=== PATIENT | male | born 1975 | race Caucasian/White ===

== ENCOUNTER 2020-01-14 10:53 | Emergency (ER) | payer OTHER, SELFPAY ==
--- NOTE | ~2020-01-14 | CT_ITS ---
EXAMINATION: CT abdomen pelvis w con INDICATION: Jaundice, abdominal distention TECHNIQUE: Computed tomographic images of the abdomen and pelvis were obtained after the administrati on of 100 cc of Omnipaque 350 intravenous contrast. The dose-length product (DLP) was 1466.08 mGy-cm. Automated exposure control and iterative reconstruction technique were employed. COMPARISON: 12/28/2018 FINDINGS: The lung bases are clear. The heart size is normal. There is a large volume of ascites. The liver is diffusely low in attenuation when compared with the spleen. The spleen, pancreas, gallbladd er, and right adrenal gland are normal. A stable 2 cm left adrenal nodule is most consistent with an adenoma. The kidneys are unremarkable. No pathologically enlarged abdominal or pelvic lymph nodes are identified. There is no free intraperitoneal gas or evidence of bowel obstruction. IMPRESSION: 1. Large volume of ascites. 2. Diffuse hepatic steatosis. Reviewed, dictated and finalized at location A.
--- NOTE | ~2020-01-14 | XR_ITS ---
EXAMINATION: XR chest 2V DATE: 01/14/2020 12:07 INDICATION: Shortness of breath TECHNIQUE: AP and lateral views of the chest are obtained. COMPARISON: 01/19/2018 FINDINGS: The lung volumes are low. The lungs are free of acute opacities. There is no pleural effusi on or pneumothorax. The cardiomediastinal silhouette is normal. There is mild thoracic spondylosis. IMPRESSION: 1. No acute cardiopulmonary abnormality. Reviewed, dictated and finalized at location A.
[2020-01-14 11:00] VITALS: BP 150/88; PULSE 119; RESP 20; TEMP 36.8; O2SAT 100
--- NOTE | 2020-01-14 11:39 | ECG_ITS ---
Measurements Intervals [place] Rate: 105 P: 44 [place]: 159 QRS: -5 QRSD: 101 T: -3 QT: 320 QTc: 424 Interpretive Statements SINUS TACHYCARDIA BORDERLINE T WAVE ABNORMALITY- ANT/INF LEADS ABNORMAL ECG Electronically Signed On 01-14-2020 12:36:04 CDT by Mason Wilson D.O.
--- NOTE | 2020-01-14 11:39 | ED.ABDPAIN ---
HPI - Abdominal Pain General Chief Complaint: Abdominal Pain <LIS Otto Last Filed: 01/14/20 14:18> Stated Complaint: ABD PAIN, JAUNDICED <LIS Otto Last Filed: 01/14/20 14:18> Time Seen by Provider: 01/14/20 11:24 <LIS Otto Last Filed: 01/14/20 14:18> Source: patient <LIS Otto Last Filed: 01/14/20 14:18> Mode of arrival: ambulatory <LIS Otto Last Filed: 01/14/20 14:18> Limitations: no limitations <LIS Otto Last Filed: 01/14/20 14:18> History of Present Illness HPI narrative: This is a 44 year old male that presents to the ER for jaundice x 2 weeks. Reports he noted yellow coloring of his skin and eyes. Reports he then noted swelling of his abdomen and legs that have continued to worsen over the last week. Also reports generalized weakness. Denies fever, chest pain, vomiting, diarrhea, dysuria or hematuria. <LIS Otto Last Filed: 01/14/20 14:18> Related Data Home Medications: Home Medications Medication Instructions Recorded Confirmed pantoprazole PO 01/14/20 <LIS Otto Last Filed: 01/14/20 14:18> Allergies/Adverse Reactions: Allergies Allergy/AdvReac Type Severity Reaction Status Date / Time No Known Allergies Allergy Unverified 01/14/20 11:07 <LIS Otto Last Filed: 01/14/20 14:18> Review of Systems Review of Systems: Narrative: CONSTITUTIONAL: Denies fever CARDIOVASCULAR: Reports edema. Denies chest pain RESPIRATORY: Reports dyspnea. GASTROINTESTINAL: Reports abdominal pain/distention. Denies nausea, vomiting, or diarrhea. GENITOURINARY: Denies dysuria or hematuria. NEUROLOGIC: Reports weakness. <LIS Otto Last Filed: 01/14/20 14:18> All systems reviewed & are unremarkable except as noted in HPI and below <Ashanti Onofre PA-C - Last Filed: 01/14/20 14:18> [facility] Past Medical History Medical History: Medical History (Updated 01/14/20 @ 14:35 by Elis Goldman MD) History of hypertension <Ashanti Onofre PA-C - Last Filed: 01/14/20 14:18> Family History Family History: Family History (Updated 04/10/18 @ 13:20 by DOCTOR UNKNOWN) Father Hypertension Family history of malignant neoplasm of brain Grandparent Family history of malignant neoplasm, Onset Age: 77 Family history of cardiovascular disease Mother Patient's mother is in good health Other Family history of coronary artery disease <Ashanti Onofre PA-C - Last Filed: 01/14/20 14:18> Social History Social History: Social History Smoking status: Never smoker Alcohol intake: current Gender identity (if verbalized by the patient): Male <Ashanti Onofre PA-C - Last Filed: 01/14/20 14:18> Exam Narrative: Exam Narrative: GENERAL: Well-appearing, well-nourished, and in no acute distress. HEAD: Normocephalic, atraumatic. EYES: PERRLA and EOMI. [place]a ikterus CHEST: Clear to auscultation. No respiratory distress. No wheezes rales or rhonchi HEART: Regular rate and rhythm. No murmur heard. Normal peripheral pulses. ABDOMEN: Distended, nontender, normal active bowel sounds. EXTREMITIES: Normal range of motion. No edema. SKIN: Warm, dry, no rash. Patient is jaundice NEURO: No focal deficits. Alert and oriented x3. PSYCH: Normal mood and affect <Ashanti Onofre PA-C - Last Filed: 01/14/20 14:18> Course [employer] HEL[employer]/PA Physician Supervision Attestation for Ashanti Onofre at 1431. I had seen the patient early in his work-up, and went back into be sure all questions were answered by him and his . The is concerned that this was such a fast onset, and he is worried about not getting right back to work. I explained they would have to see the liver specialist, and because of the severe cirrhosis might need to talk to the transplant team. I told them both that he would have to be free from alcohol for 6 months to
[2020-01-14 11:42] LABS: Basophils Absolute Auto 0.1 K/mm3 (0.0-0.1); Basophils Percent Auto 0.6 % (0.2-1.2); Eosinophils Percent Auto 0.3 % (0-4.4); Hematocrit 32.3 % (42.0-52.0); Hemoglobin 11.7 g/dL (14.0-18.0); Immature Granulocyte Absolute 0.48 K/mm3 (0.00-0.031); Immature Granulocyte Percent A 3.1 % (0-0.5); Lymphocytes Absolute Auto 0.57 K/mm3 (0.9-3.2); Lymphocytes Percent Auto 3.6 % (18.3-44.2); Mean Corpuscular HGB Conc 36.2 g/dl (32-36); Mean Corpuscular Hemoglobin 33.1 pg (26-34); Mean Corpuscular Volume 91.2 fl (80-100); Mean Platelet Volume 10.1 fl (7.4-10.4); Monocytes Absolute Auto 1.1 K/mm3 (0.1-0.6); Monocytes Percent Auto 7.1 % (2.6-8.5); Neutrophils Absolute Auto 13.4 K/mm3 (1.3-6.7); Neutrophils Percent Auto 85.3 % (45.5-73.1); Platelet Count Result 239 k/mm3 (150-375); Red Blood Count 3.54 M/mm3 (4.6-6.20); Red Cell Distribution Width 16.8 % (11.5-14.5); White Blood Count 15.7 K/mm3 (4.5-10.0)
[2020-01-14 11:52] LABS: INR 1.2; Prothrombin Time 15.3 Seconds (11.1-14.7)
[2020-01-14 11:53] LABS: Partial Thromboplastin Time 38.3 SECONDS (22.3-36.8)
[2020-01-14 11:53] LABS: Ammonia 52 umol/L (9-30)
[2020-01-14 12:01] VITALS: BP 123/73; PULSE 106; RESP 21; O2SAT 100
[2020-01-14 12:10] LABS: Alanine Aminotransferase 39 U/L (4-50); Albumin Level 3.7 g/dL (3.5-5.1); Alkaline Phosphatase 298 U/L (38-126); Aspartate Amino Transferase 157 U/L (17-59); Bilirubin Direct 16.7 mg/dL (0-0.3); Bilirubin,Total 28.6 mg/dL (0.2-1.3); Blood Urea Nitrogen 10 mg/dL (9-20); Calcium 8.2 mg/dL (8.4-10.2); Carbon Dioxide 20 mmol/L (22-30); Chloride 83 mmol/L (98-107); Estimated CRCL calculation 159 ml/min; Estimated Glomerular Filt Rate > 60; Glucose 144 mg/dL (75-110); Lipase 641 U/L (23-300); NT Pro B Type Natriuretic Pept 136 PG/ML (5-100); Potassium 3.6 mmol/L (3.4-5.0); Sodium 118 mmol/L (137-145)
[2020-01-14 12:27] LABS: Acetaminophen < 10 ug/mL (10-30); Ethanol < 10 mg/dL (<10)
[2020-01-14 13:11] VITALS: BP 125/103; PULSE 103; RESP 23
[2020-01-14 13:45] LABS: Add Urine Microscopic? YES; Appearance Urine Clear (Clear); Bacteria Urine Trace /hpf; Bilirubin Urine 2+ (Negative); Blood Urine Negative (Negative); Color Urine Amber (Yellow); Glucose Urine UA 1+ mg/dL (Negative); Ketones Urine Trace mg/dL (Negative); Leukocyte Esterase Ur Negative LEU/UL (Negative); Mucus Urine Rare /lpf; Nitrate Urine Negative (Negative); Protein Urine 1+ mg/dL (Negative); RBC Urine 0-2 /hpf (0-2); Squamous Epithelial Cell Urine Rare /hpf (Few)
[2020-01-14 13:48] LABS: Specific Grav Ur 1.036 (1.001-1.035)
[2020-01-14 14:01] VITALS: BP 124/74; PULSE 96; RESP 23; O2SAT 100
[2020-01-14 15:45] LABS: HAV RESULT Negative (Negative); Hepatitis B Core IgM Result Negative (Negative)
[2020-01-14 15:57] LABS: Hepatitis C Virus Antibody Negative (Negative)
[2020-01-14 16:50] LABS: Hepatitis B Surface Antigen Negative (Negative)
== END 2020-01-14 16:06 | disposition short-term general hospital (02) ==
PROVIDERS: Physician Assistant; Emergency Provider Emergency Medicine; PCP Internal Medicine
DX: K70.11 Alcoholic hepatitis with ascites (principal); K72.90 Hepatic failure, unspecified without coma; K70.30 Alcoholic cirrhosis of liver without ascites; K76.0 Fatty (change of) liver, not elsewhere classified; E87.1 Hypo-osmolality and hyponatremia; R79.1 Abnormal coagulation profile; I10 Essential (primary) hypertension
CPT/HCPCS: 36415; 71046; 74177; 80053; 80074; 80307; 81001; 82140; 82248; 83690; 83880; 85025; 85610; 85730; 87086; 87088; 93005; 99285; Q9967

== ENCOUNTER 2020-02-05 12:34 | Outpatient (CLI) | payer OTHER, SELFPAY ==
--- NOTE | ~2020-02-05 | US_ITS ---
EXAMINATION: US paracentesis abd w/image DATE: 02/05/2020 14:23 INDICATION: Alcoholic hepatitis with ascites. TECHNIQUE: The procedure and its risks, benefits, and alternatives were discussed with the patient. P otential risks discussed included bleeding and infection. The skin was prepped and draped in sterile fashion. 1% lidocaine was used for local anesthesia. Under ultrasound guidance, a 5 Fr catheter with trochar was advanced into the ascites in the left lower quadrant. Fluid was aspirated. The catheter w as removed, and a dressing was applied. There were no immediate complications. FINDINGS: Ultrasound images demonstrate ascites and the catheter within the fluid. IMPRESSION: 1. Successful ultrasound-guided paracentesis yielding 5000 mL of kathy-colored fluid. Reviewed, dictated and finalized at location A.
[2020-02-05 13:01] LABS: Mean Platelet Volume 9.8 fl (7.4-10.4); Platelet Count Result 330 k/mm3 (150-375)
[2020-02-05 13:08] LABS: INR 1.3; Prothrombin Time 16.2 Seconds (11.1-14.7)
[2020-02-05 15:50] LABS: Appearance Peritoneal Fluid Hazy (Clear); Source Peritoneal Fluid Peritoneal Fluid
[2020-02-05 15:51] LABS: Color Peritoneal Fluid Yellow (Colorless); Lymphocytes Peritoneal Fluid 16 %; Macrophages Peritoneal Fluid 18 %; Mesothelial Cells Peritoneal Fluid 5 %; Monocytes Peritoneal Fluid 47 %; Neutrophils Peritoneal Fluid 14 % (0-25); Nucleated Cells Peritoneal Flu 67 /uL (0-500); RBC Peritoneal Fluid 168 /uL (0-100000)
[2020-02-07 14:31] LABS: Albumin Peritoneal Fluid 1.2 g/dL
[2020-02-07 19:20] LABS: Total Protein Peritoneal Fluid <3.0 g/dL
== END 2020-02-05 12:35 | disposition home or self-care (01) ==
PROVIDERS: PCP Internal Medicine; Visit Provider Internal Medicine
DX: K70.11 Alcoholic hepatitis with ascites (principal)
CPT/HCPCS: 36415; 49083; 82042; 84157; 85049; 85610; 87070; 87075; 87205; 88104; 88108; 88305; 89051

== ENCOUNTER 2023-05-15 10:36 | Outpatient (CLI) | payer OTHER, SELFPAY ==
[2023-05-15 19:25] LABS: Basophils Percent Auto 1.1 % (0.2-1.2); Eosinophils Absolute Auto 0.2 K/mm3 (0-0.3); Eosinophils Percent Auto 5.3 % (0-4.4); Hematocrit 37.6 % (42.0-52.0); Immature Granulocyte Absolute 0.01 K/mm3 (0.00-0.031); Immature Granulocyte Percent A 0.3 % (0-0.5); Lymphocytes Absolute Auto 1.39 K/mm3 (0.9-3.2); Mean Corpuscular HGB Conc 31.9 g/dl (32-36); Mean Corpuscular Volume 87.9 fl (80-100); Mean Platelet Volume 11.1 fl (7.4-10.4); Monocytes Absolute Auto 0.5 K/mm3 (0.1-0.6); Monocytes Percent Auto 14.9 % (2.6-8.5); Neutrophils Absolute Auto 1.4 K/mm3 (1.3-6.7); Neutrophils Percent Auto 39.4 % (45.5-73.1); Platelet Count Result 136 k/mm3 (150-375); Red Blood Count 4.28 M/mm3 (4.6-6.20); Red Cell Distribution Width 14.2 % (11.5-14.5); White Blood Count 3.6 K/mm3 (4.5-10.0)
[2023-05-15 19:39] LABS: Alanine Aminotransferase 33 U/L (6-50); Albumin Level 4.2 g/dL (3.5-5.1); Alkaline Phosphatase 114 U/L (38-126); Anion Gap 6 mmol/L (8-16); Aspartate Amino Transferase 49 U/L (17-59); Bilirubin,Total 0.8 mg/dL (0.2-1.3); Blood Urea Nitrogen 14 mg/dL (9-20); Calcium 9.3 mg/dL (8.4-10.2); Carbon Dioxide 27 mmol/L (22-30); Chloride 109 mmol/L (98-107); Estimated Glomerular Filt Rate > 60; Glucose 123 mg/dL (65-110); Potassium 4.4 mmol/L (3.4-5.0); Sodium 142 mmol/L (137-145)
[2023-05-18 04:45] LABS: GGT 259 U/L (3-95)
== END 2023-05-15 10:37 | disposition home or self-care (01) ==
LOC: ANHGOSHLAB 10:37
PROVIDERS: PCP Internal Medicine; Visit Provider Internal Medicine
DX: F41.9 Anxiety disorder, unspecified (principal); K70.11 Alcoholic hepatitis with ascites; F10.20 Alcohol dependence, uncomplicated
CPT/HCPCS: 36415; 80053; 82728; 82977; 84443; 85025; 85610

== ENCOUNTER 2024-01-09 10:01 | Outpatient (CLI) | payer OTHER, SELFPAY ==
[2024-01-09 13:59] LABS: Basophils Percent Auto 0.7 % (0.2-1.2); Eosinophils Absolute Auto 0.2 K/mm3 (0-0.3); Eosinophils Percent Auto 3.9 % (0-4.4); Hematocrit 40.8 % (42.0-52.0); Hemoglobin 13.8 g/dL (14.0-18.0); Immature Granulocyte Absolute 0.01 K/mm3 (0.00-0.031); Immature Granulocyte Percent A 0.2 % (0-0.5); Lymphocytes Absolute Auto 1.72 K/mm3 (0.9-3.2); Lymphocytes Percent Auto 32.1 % (18.3-44.2); Mean Corpuscular HGB Conc 33.8 g/dl (32-36); Mean Corpuscular Hemoglobin 29.1 pg (26-34); Mean Corpuscular Volume 85.9 fl (80-100); Mean Platelet Volume 10.4 fl (7.4-10.4); Monocytes Absolute Auto 0.6 K/mm3 (0.1-0.6); Monocytes Percent Auto 10.3 % (2.6-8.5); Neutrophils Absolute Auto 2.8 K/mm3 (1.3-6.7); Neutrophils Percent Auto 52.8 % (45.5-73.1); Platelet Count Result 198 k/mm3 (150-375); Red Blood Count 4.75 M/mm3 (4.6-6.20); White Blood Count 5.4 K/mm3 (4.5-10.0)
[2024-01-09 14:07] LABS: Alanine Aminotransferase 27 U/L (6-50); Albumin Level 4.3 g/dL (3.5-5.1); Alkaline Phosphatase 160 U/L (38-126); Anion Gap 7 mmol/L (4-12); Aspartate Amino Transferase 50 U/L (17-59); Bilirubin,Total 0.9 mg/dL (0.2-1.3); Blood Urea Nitrogen 19 mg/dL (9-20); Calcium 9.6 mg/dL (8.4-10.2); Carbon Dioxide 22 mmol/L (22-30); Chloride 111 mmol/L (98-107); Cholesterol 200 mg/dL (0-200); Estimated Glomerular Filt Rate > 60; Glucose 115 mg/dL (65-110); HDL Direct 68 mg/dL; Potassium 4.4 mmol/L (3.4-5.0); Sodium 140 mmol/L (137-145); Triglycerides 81 mg/dL (<150)
[2024-01-09 14:18] LABS: LDL Cholesterol Direct 93 mg/dL
[2024-01-09 14:36] LABS: Prostate Specific Antigen 1.2 ng/mL (< OR = 4.0)
[2024-01-09 16:11] LABS: Hemoglobin A1C 5.1 % (<5.7)
[2024-01-31 12:34] LABS: GGT 239
== END 2024-01-09 10:02 | disposition home or self-care (01) ==
LOC: ANHGOSHLAB 10:03
PROVIDERS: PCP Internal Medicine; Visit Provider Internal Medicine
DX: Z12.5 Encounter for screening for malignant neoplasm of prostate (principal); D64.9 Anemia, unspecified; F10.20 Alcohol dependence, uncomplicated; K70.11 Alcoholic hepatitis with ascites; R73.9 Hyperglycemia, unspecified
CPT/HCPCS: 36415; 80053; 80061; 82728; 82977; 83036; 84153; 85025; G0103

== ENCOUNTER 2024-02-21 08:18 | Outpatient (CLI) | payer OTHER, SELFPAY ==
--- NOTE | ~2024-02-21 | US_ITS ---
US abdomen limited INDICATION: Alcoholic hepatitis with ascites PROCEDURE: Realtime right upper abdominal ultrasound. COMPARISON: No prior studies for comparison. FINDINGS: The pancreas is normal without focal mass or pancreatic ductal dilation. Liver echotexture is increased, consistent with fatty infiltration. There is nodular appearance to the liver surface, compatible with cirrhosis. There is normal directional flow in the portal vein. No ascites is visual ized. The gallbladder is normal without stones, gallbladder wall thickening or pericholecystic fluid. Comm on bile duct measures 4 mm. No sonographic Turpin's sign. IMPRESSION: 1: Cirrhosis of the liver. Reviewed, dictated and finalized at location B. IMPRESSION: 1: Cirrhosis of the liver.
== END 2024-02-21 08:19 ==
LOC: GOSHIMG 08:19
PROVIDERS: PCP Internal Medicine; Visit Provider Internal Medicine
DX: K70.11 Alcoholic hepatitis with ascites (principal)
CPT/HCPCS: 76705

== ENCOUNTER 2024-11-05 12:37 | Outpatient (CLI) | payer OTHER, SELFPAY ==
[2024-11-05 13:28] LABS: Basophils Percent Auto 0.6 % (0.2-1.2); Eosinophils Absolute Auto 0.1 K/mm3 (0-0.3); Eosinophils Percent Auto 1.1 % (0-4.4); Hematocrit 42.2 % (42.0-52.0); Hemoglobin 14.4 g/dL (14.0-18.0); Immature Granulocyte Absolute 0.03 K/mm3 (0.00-0.031); Immature Granulocyte Percent A 0.4 % (0-0.5); Lymphocytes Absolute Auto 1.73 K/mm3 (0.9-3.2); Lymphocytes Percent Auto 24.9 % (18.3-44.2); Mean Corpuscular HGB Conc 34.1 g/dl (32-36); Mean Corpuscular Hemoglobin 29.6 pg (26-34); Mean Corpuscular Volume 86.7 fl (80-100); Monocytes Absolute Auto 0.4 K/mm3 (0.1-0.6); Monocytes Percent Auto 6.3 % (2.6-8.5); Neutrophils Absolute Auto 4.6 K/mm3 (1.3-6.7); Neutrophils Percent Auto 66.7 % (45.5-73.1); Platelet Count Result 210 k/mm3 (150-375); Red Blood Count 4.87 M/mm3 (4.6-6.20); Red Cell Distribution Width 13.2 % (11.5-14.5)
[2024-11-05 18:53] LABS: Alanine Aminotransferase 36 U/L (6-50); Albumin Level 4.6 g/dL (3.5-5.1); Alkaline Phosphatase 120 U/L (38-126); Anion Gap 13 mmol/L (4-12); Aspartate Amino Transferase 54 U/L (17-59); Bilirubin,Total 1.3 mg/dL (0.2-1.3); Blood Urea Nitrogen 16 mg/dL (9-20); Calcium 9.5 mg/dL (8.4-10.2); Carbon Dioxide 21 mmol/L (22-30); Chloride 108 mmol/L (98-107); Estimated Glomerular Filt Rate > 60; Glucose 102 mg/dL (65-110); Potassium 4.2 mmol/L (3.4-5.0); Sodium 142 mmol/L (137-145)
[2024-11-05 19:24] LABS: Thyroid Stimulating Hormone 0.706 uIU/mL (0.465-4.680)
[2024-11-05 20:01] LABS: Free T3 4.15 pg/mL (2.71-6.16)
[2024-11-06 07:18] LABS: GGT 139 U/L (3-95)
== END 2024-11-05 12:38 | disposition home or self-care (01) ==
LOC: ANHGOSHLAB 12:39
PROVIDERS: PCP Internal Medicine; Visit Provider Internal Medicine
DX: F10.288 Alcohol dependence with other alcohol-induced disorder (principal); K70.10 Alcoholic hepatitis without ascites; D64.89 Other specified anemias
CPT/HCPCS: 36415; 80053; 82728; 82977; 84443; 84481; 85025